=== PATIENT | female | born 1935 | race Caucasian/White ===

== ENCOUNTER 2023-06-07 14:37 | Emergency (ER) | payer OTHER ==
[~2023-06-07] VITALS: Ht 162.6 cm; Wt 49.4 kg
[2023-06-07 14:45] VITALS: BP_SYST 132; PULSE 55; RESP 22; TEMP 98.3; O2SAT 98
[2023-06-07 18:22] VITALS: BP_SYST 132; PULSE 55; RESP 22; TEMP 98.3; O2SAT 98
== END 2023-06-07 18:22 | disposition home or self-care (01) ==
LOC: SED 14:37
DX: M79.662 Pain in left lower leg (principal)
CPT/HCPCS: 93971; 99284